=== PATIENT | male | born 1955 | race Two or more races ===

== ENCOUNTER 2020-12-26 00:08 | Inpatient (IN) | payer MEDICARE, MEDICAID ==
[~2020-12-26] VITALS: Ht 175.3 cm; Wt 110.5 kg
[2020-12-26 02:03] LABS: Basophils # (auto) 0 10 ^3/uL (0-0.2); Basophils % (auto) 0.7 % (0.0-2.0); Eosinophils # (auto) 0.1 10 ^3/uL (0-0.8); Eosinophils % (auto) 1.7 % (0.0-7.0); Hematocrit 41.8 % (41.0-53.0); Hemoglobin 13.5 g/dL (13.5-17.5); Lymphocytes # (auto) 0.9 10 ^3/uL (0.4-5.4); Mean Corpuscular Hemoglobin 27.3 pg (28.0-32.0); Mean Corpuscular Hgb Conc. 32.4 g/dL (32.0-36.0); Mean Corpuscular Volume 84.1 fL (80.0-100.0); Monocytes # (auto) 0.8 10 ^3/uL (0-1.3); Monocytes % (auto) 16.3 % (0.0-12.0); Neutrophils % (auto) 62.3 % (37.0-80.0); Nucleated Red Blood Cells % 0.5 %; Red Blood Cells 4.97 10^6/uL (4.5-5.90); Red Cell Distribution Width 18.2 % (11.8-14.3); White Blood Cell 4.8 10^3/uL (4.4-10.8)
[2020-12-26 02:24] LABS: Albumin 2.9 g/dL (3.4-5.0); Anion Gap 8 (5-15); BUN/Creatinine Ratio 17.2; Blood Urea Nitrogen 28 mg/dL (7-18); Calcium 8.8 mg/dL (8.5-10.1); Carbon Dioxide 26 mmol/L (21-32); Chloride 105 mmol/L (98-107); GFR African American 55 mL/min; GFR Non-African American 45 mL/min; Glucose 118 mg/dL (74-106); Potassium 4.2 mmol/L (3.5-5.1); Sodium 139 mmol/L (136-145)
[2020-12-26 02:29] LABS: Alanine Aminotransferase 18 U/L (16-61); Alkaline Phosphatase 123 U/L (45-117); Aspartate Aminotransferase 25 U/L (15-37); Bilirubin, Total 1.3 mg/dL (0.2-1.0); Total Protein 7.6 g/dL (6.4-8.2)
[2020-12-26] MEDS ORDERED: FUROSEMIDE 40 MG/4 ML VIAL IV ONE (03:30)
[2020-12-26] MEDS: InsuLIN REG 1unit/0.01ml Soln (100units/ml) SC SCH ×4 (07:00→22:40)
[2020-12-26] MEDS ORDERED: MORPHINE SULFATE INJECTION 2 MG/ML SYRG IV PRN (07:00)
[2020-12-26] MEDS ORDERED: DEXTROSE (50%) 50ML SYRG IV PRN (07:00)
[2020-12-26] MEDS ORDERED: NITROGLYCERIN 0.4 MG SL TAB SL PRN (07:00)
[2020-12-26] MEDS ORDERED: ACETAMINOPHEN 325 MG TAB PO PRN (07:00)
[2020-12-26] MEDS: HYDROcodone-ACET 5/325MG TAB PO PRN ×2 (07:48→15:59)
[2020-12-26] MEDS: ACCU-CHEK COMFORT CURVE STRIP VI SCH ×4 (08:05→22:25)
[2020-12-26 08:13] LABS: Urine WBC None Seen /hpf (0 - 3)
[2020-12-26 08:22] LABS: Urine Bacteria NONE SEEN /hpf (None Seen); Urine Blood Negative /uL (Negative); Urine Hyaline Cast MANY /lpf (0 - 2); Urine Mucus FEW (None Seen); Urine Specific Gravity 1.011 (1.001-1.035)
[2020-12-26] MEDS ORDERED: ZINC SULFATE 220mg CAP or TAB PO SCH (10:00)
[2020-12-26] MEDS: FAMOTIDINE (10MG/ML) 2ML VL IV SCH (10:17)
[2020-12-26] MEDS: CARVEDILOL 12.5 MG TAB PO SCH ×2 (10:17→22:40)
[2020-12-26] MEDS: ASCORBIC ACID 500 MG TAB PO SCH ×2 (10:18→22:40)
[2020-12-26] MEDS: HEPARIN SODIUM (PORCINE) 5000 UNITS/ML 1ML VIAL SC SCH ×3 (10:18→22:40)
[2020-12-26] MEDS: MULTIPLE VITAMIN TAB PO SCH (10:18)
[2020-12-26] MEDS ORDERED: cefTRIAXone 1GM/50ML D5W 50 ML IV ONE (11:30)
[2020-12-26] MEDS ORDERED: DOXYCYCLINE 100 MG TAB/CAP PO ONE (11:30)
[2020-12-26] MEDS: SODIUM CHLOR 0.9% PF (SALINE LOCK) 10ML VIAL/SYR IV SCH ×2 (14:05→22:40)
[2020-12-26] MEDS: ONDANSETRON HCL 4 MG/2 ML VIAL IV PRN (15:59)
[2020-12-26] MEDS ORDERED: FUROSEMIDE 40 MG/4 ML VIAL IV SCH (18:00)
[2020-12-26] MEDS: FUROSEMIDE 40 MG/4 ML VIAL IV SCH (18:16)
[2020-12-26 20:08] LABS: INR 1.4 (0.9-1.15); Partial Thromboplastin Time 30.9 sec (23.6-33.0)
[2020-12-26] MEDS: DOXYCYCLINE 100 MG TAB/CAP PO SCH (22:40)
[2020-12-27] MEDS: ALBUMIN 25% 100 ML IV SCH ×2 (00:30→16:49)
[2020-12-27] MEDS: ONDANSETRON HCL 4 MG/2 ML VIAL IV PRN (01:47)
[2020-12-27 04:02] LABS: Basophils # (auto) 0 10 ^3/uL (0-0.2); Basophils % (auto) 0.9 % (0.0-2.0); Eosinophils # (auto) 0.1 10 ^3/uL (0-0.8); Lymphocytes # (auto) 0.8 10 ^3/uL (0.4-5.4); Monocytes # (auto) 0.8 10 ^3/uL (0-1.3); Neutrophils # (auto) 2.9 10 ^3/uL (1.6-8.6); Neutrophils % (auto) 63.4 % (37.0-80.0); White Blood Cell 4.6 10^3/uL (4.4-10.8)
[2020-12-27 04:04] LABS: Eosinophils % (auto) 1.3 % (0.0-7.0); Hematocrit 41.4 % (41.0-53.0); Hemoglobin 13.3 g/dL (13.5-17.5); Lymphocytes % (auto) 16.6 % (10.0-50.0); Mean Corpuscular Hemoglobin 27.5 pg (28.0-32.0); Mean Corpuscular Hgb Conc. 32.1 g/dL (32.0-36.0); Mean Corpuscular Volume 85.4 fL (80.0-100.0); Monocytes % (auto) 17.8 % (0.0-12.0); Nucleated Red Blood Cells % 0.3 %; Red Blood Cells 4.85 10^6/uL (4.5-5.90); Red Cell Distribution Width 18.4 % (11.8-14.3)
[2020-12-27 04:24] LABS: Albumin 2.7 g/dL (3.4-5.0); BUN/Creatinine Ratio 17.5; Bilirubin, Total 1.3 mg/dL (0.2-1.0); Total Protein 7.2 g/dL (6.4-8.2)
[2020-12-27] MEDS: FUROSEMIDE 40 MG/4 ML VIAL IV SCH (05:36)
[2020-12-27] MEDS: SODIUM CHLOR 0.9% PF (SALINE LOCK) 10ML VIAL/SYR IV SCH ×3 (05:36→22:00)
[2020-12-27] MEDS: InsuLIN REG 1unit/0.01ml Soln (100units/ml) SC SCH ×4 (06:18→22:30)
[2020-12-27] MEDS: ACCU-CHEK COMFORT CURVE STRIP VI SCH ×4 (06:18→22:30)
[2020-12-27] MEDS: cefTRIAXone 1GM/50ML D5W 50 ML IV SCH (09:00)
[2020-12-27] MEDS: FAMOTIDINE (10MG/ML) 2ML VL IV SCH (09:38)
[2020-12-27] MEDS: CARVEDILOL 12.5 MG TAB PO SCH ×2 (09:40→22:30)
[2020-12-27] MEDS: DOXYCYCLINE 100 MG TAB/CAP PO SCH ×2 (09:40→23:24)
[2020-12-27] MEDS: MULTIPLE VITAMIN TAB PO SCH (09:40)
[2020-12-27] MEDS: ASCORBIC ACID 500 MG TAB PO SCH (09:41)
[2020-12-27] MEDS: HEPARIN SODIUM (PORCINE) 5000 UNITS/ML 1ML VIAL SC SCH ×2 (09:41→22:30)
[2020-12-27 16:56] LABS: Creatinine, Urine 208 mg/dL (30.0-125.0); Sodium Urine 14 mmol/L (40-220)
[2020-12-27] MEDS: BUMETANIDE 2.5mg/10ml (0.25 mg/ml) INJ IV SCH ×2 (18:00→18:47)
[2020-12-27] MEDS: SUCRALFATE 1 GM/10 ML ORAL SUSP PO SCH ×2 (18:20→23:27)
[2020-12-27 20:00] VITALS: BP 93/53
[2020-12-27] MEDS: HYDROcodone-ACET 5/325MG TAB PO PRN (22:30)
[2020-12-27] MEDS: PANTOPRAZOLE 40 MG TAB PO SCH (22:30)
[2020-12-28] MEDS: SUCRALFATE 1 GM/10 ML ORAL SUSP PO SCH ×4 (06:18→22:00)
[2020-12-28] MEDS: SODIUM CHLOR 0.9% PF (SALINE LOCK) 10ML VIAL/SYR IV SCH ×3 (06:18→22:00)
[2020-12-28] MEDS: BUMETANIDE 2.5mg/10ml (0.25 mg/ml) INJ IV SCH ×2 (06:18→18:32)
[2020-12-28] MEDS: InsuLIN REG 1unit/0.01ml Soln (100units/ml) SC SCH ×4 (06:21→22:00)
[2020-12-28] MEDS: ACCU-CHEK COMFORT CURVE STRIP VI SCH ×4 (07:00→22:00)
[2020-12-28] MEDS: ALBUMIN 25% 100 ML IV SCH (08:30)
[2020-12-28 09:00] VITALS: BP 99/67
[2020-12-28] MEDS: HEPARIN SODIUM (PORCINE) 5000 UNITS/ML 1ML VIAL SC SCH ×2 (10:00→22:00)
[2020-12-28] MEDS: cefTRIAXone 1GM/50ML D5W 50 ML IV SCH (10:08)
[2020-12-28] MEDS: DOXYCYCLINE 100 MG TAB/CAP PO SCH ×2 (10:08→22:00)
[2020-12-28] MEDS: MULTIPLE VITAMIN TAB PO SCH (10:09)
[2020-12-28] MEDS: PANTOPRAZOLE 40 MG TAB PO SCH ×2 (10:09→22:00)
[2020-12-28] MEDS: CARVEDILOL 12.5 MG TAB PO SCH ×2 (10:10→22:00)
[2020-12-28] MEDS: ENOXAPARIN SOD 40 MG/0.4 ML SYRINGE SC SCH (10:11)
[2020-12-28] MEDS: HYDROcodone-ACET 5/325MG TAB PO PRN ×2 (11:35→18:34)
[2020-12-28 12:49] VITALS: BP 113/60
[2020-12-28 17:03] VITALS: BP 100/60
[2020-12-28 20:00] VITALS: BP 79/37
[2020-12-28] MEDS ORDERED: MORPHINE SULFATE INJECTION 2 MG/ML SYRG IV PRN (20:45)
[2020-12-28 23:39] VITALS: BP 79/37
[2020-12-29 05:23] VITALS: BP 106/74
[2020-12-29] MEDS: SODIUM CHLOR 0.9% PF (SALINE LOCK) 10ML VIAL/SYR IV SCH ×3 (06:00→21:38)
[2020-12-29] MEDS: SUCRALFATE 1 GM/10 ML ORAL SUSP PO SCH ×4 (06:18→21:44)
[2020-12-29] MEDS: BUMETANIDE 2.5mg/10ml (0.25 mg/ml) INJ IV SCH ×2 (06:19→17:22)
[2020-12-29] MEDS: ACCU-CHEK COMFORT CURVE STRIP VI SCH ×4 (07:00→21:36)
[2020-12-29] MEDS: InsuLIN REG 1unit/0.01ml Soln (100units/ml) SC SCH ×4 (07:00→21:44)
[2020-12-29 09:00] VITALS: BP 125/68
[2020-12-29] MEDS: cefTRIAXone 1GM/50ML D5W 50 ML IV SCH (09:00)
[2020-12-29] MEDS: CARVEDILOL 12.5 MG TAB PO SCH ×2 (09:53→21:45)
[2020-12-29] MEDS: ENOXAPARIN SOD 40 MG/0.4 ML SYRINGE SC SCH (09:53)
[2020-12-29] MEDS: HEPARIN SODIUM (PORCINE) 5000 UNITS/ML 1ML VIAL SC SCH (09:53)
[2020-12-29] MEDS: PANTOPRAZOLE 40 MG TAB PO SCH ×2 (09:53→21:44)
[2020-12-29] MEDS: MULTIPLE VITAMIN TAB PO SCH (09:53)
[2020-12-29] MEDS: DOXYCYCLINE 100 MG TAB/CAP PO SCH (09:53)
[2020-12-29] MEDS ORDERED: ACETAMINOPHEN 500 MG TAB PO PRN (11:15)
[2020-12-29 13:00] VITALS: BP 85/53
[2020-12-29] MEDS: DOBUTamine 1000MCG/ML 250 ML IV SCH (14:26)
[2020-12-29] MEDS: HYDROcodone-ACET 5/325MG TAB PO PRN ×2 (14:26→19:58)
[2020-12-29 17:00] VITALS: BP 85/49
[2020-12-29 22:00] VITALS: BP 87/57
[2020-12-30 05:00] VITALS: BP 114/54
[2020-12-30] MEDS: HYDROcodone-ACET 5/325MG TAB PO PRN ×3 (05:14→21:25)
[2020-12-30 05:41] LABS: Basophils # (auto) 0 10 ^3/uL (0-0.2); Basophils % (auto) 0.9 % (0.0-2.0); Eosinophils # (auto) 0.1 10 ^3/uL (0-0.8); Eosinophils % (auto) 1.5 % (0.0-7.0); Hematocrit 39.6 % (41.0-53.0); Hemoglobin 12.8 g/dL (13.5-17.5); Lymphocytes # (auto) 0.6 10 ^3/uL (0.4-5.4); Lymphocytes % (auto) 17.7 % (10.0-50.0); Mean Corpuscular Hemoglobin 27.4 pg (28.0-32.0); Mean Corpuscular Hgb Conc. 32.4 g/dL (32.0-36.0); Mean Corpuscular Volume 84.5 fL (80.0-100.0); Monocytes # (auto) 0.6 10 ^3/uL (0-1.3); Monocytes % (auto) 17.5 % (0.0-12.0); Neutrophils # (auto) 2.3 10 ^3/uL (1.6-8.6); Neutrophils % (auto) 62.4 % (37.0-80.0); Nucleated Red Blood Cells % 0.2 %; Red Blood Cells 4.69 10^6/uL (4.5-5.90); Red Cell Distribution Width 18.2 % (11.8-14.3); White Blood Cell 3.6 10^3/uL (4.4-10.8)
[2020-12-30 05:59] LABS: Calcium 8.6 mg/dL (8.5-10.1); Potassium 4.7 mmol/L (3.5-5.1)
[2020-12-30 06:02] LABS: BUN/Creatinine Ratio 12.4
[2020-12-30] MEDS: SUCRALFATE 1 GM/10 ML ORAL SUSP PO SCH ×4 (06:33→21:49)
[2020-12-30] MEDS: BUMETANIDE 2.5mg/10ml (0.25 mg/ml) INJ IV SCH (06:33)
[2020-12-30] MEDS: SODIUM CHLOR 0.9% PF (SALINE LOCK) 10ML VIAL/SYR IV SCH ×3 (06:36→21:48)
[2020-12-30] MEDS: DOBUTamine 1000MCG/ML 250 ML IV SCH (06:43)
[2020-12-30] MEDS: InsuLIN REG 1unit/0.01ml Soln (100units/ml) SC SCH ×4 (06:43→21:50)
[2020-12-30] MEDS: ACCU-CHEK COMFORT CURVE STRIP VI SCH ×4 (06:44→21:50)
[2020-12-30 09:00] VITALS: BP 108/69
[2020-12-30] MEDS ORDERED: metOLazone 5 MG TAB PO ONE (09:15)
[2020-12-30] MEDS: MULTIPLE VITAMIN TAB PO SCH (09:45)
[2020-12-30] MEDS: cefTRIAXone 1GM/50ML D5W 50 ML IV SCH (09:45)
[2020-12-30] MEDS: PANTOPRAZOLE 40 MG TAB PO SCH ×2 (09:45→21:49)
[2020-12-30] MEDS: CARVEDILOL 12.5 MG TAB PO SCH (09:46)
[2020-12-30] MEDS: ENOXAPARIN SOD 30 MG/0.3 ML SYRINGE SC SCH (12:00)
[2020-12-30] MEDS ORDERED: ALBUMIN 25% 100 ML IV ONE (12:45)
[2020-12-30 13:00] VITALS: BP 99/63
[2020-12-30 17:00] VITALS: BP 87/51
[2020-12-30 22:00] VITALS: BP 93/59
[2020-12-30] MEDS ORDERED: CARVEDILOL 12.5 MG TAB PO SCH (22:00)
[2020-12-31] MEDS: DOBUTamine 1000MCG/ML 250 ML IV SCH ×3 (00:58→21:55)
[2020-12-31 05:00] VITALS: BP 111/67
[2020-12-31] MEDS: ONDANSETRON HCL 4 MG/2 ML VIAL IV PRN (05:24)
[2020-12-31] MEDS: ACCU-CHEK COMFORT CURVE STRIP VI SCH ×4 (06:22→21:18)
[2020-12-31] MEDS: SUCRALFATE 1 GM/10 ML ORAL SUSP PO SCH ×4 (06:22→21:17)
[2020-12-31] MEDS: SODIUM CHLOR 0.9% PF (SALINE LOCK) 10ML VIAL/SYR IV SCH ×3 (06:22→21:17)
[2020-12-31] MEDS: InsuLIN REG 1unit/0.01ml Soln (100units/ml) SC SCH ×4 (06:23→21:18)
[2020-12-31] MEDS: HYDROcodone-ACET 5/325MG TAB PO PRN ×2 (06:29→21:18)
[2020-12-31 06:39] LABS: BUN/Creatinine Ratio 13.2; Calcium 8.6 mg/dL (8.5-10.1); Potassium 4.5 mmol/L (3.5-5.1)
[2020-12-31 09:00] VITALS: BP 117/68
[2020-12-31] MEDS: PANTOPRAZOLE 40 MG TAB PO SCH ×2 (10:00→21:17)
[2020-12-31] MEDS: ENOXAPARIN SOD 30 MG/0.3 ML SYRINGE SC SCH (10:00)
[2020-12-31] MEDS: MULTIPLE VITAMIN TAB PO SCH (11:36)
[2020-12-31] MEDS ORDERED: ALBUMIN 25% 100 ML IV ONE (12:45)
[2020-12-31 13:00] VITALS: BP 96/57
[2020-12-31 17:00] VITALS: BP 106/61
[2020-12-31] MEDS: DOCUSATE SOD 100 MG CAP PO PRN (21:18)
[2020-12-31 22:00] VITALS: BP 97/62
[2021-01-01 05:00] VITALS: BP 106/56
[2021-01-01] MEDS: DOBUTamine 1000MCG/ML 250 ML IV SCH ×4 (05:03→21:22)
[2021-01-01 06:13] LABS: BUN/Creatinine Ratio 16.1; Calcium 8.6 mg/dL (8.5-10.1); Potassium 4.4 mmol/L (3.5-5.1)
[2021-01-01] MEDS: SUCRALFATE 1 GM/10 ML ORAL SUSP PO SCH ×4 (06:17→21:19)
[2021-01-01] MEDS: SODIUM CHLOR 0.9% PF (SALINE LOCK) 10ML VIAL/SYR IV SCH ×3 (06:17→21:19)
[2021-01-01] MEDS: InsuLIN REG 1unit/0.01ml Soln (100units/ml) SC SCH ×4 (06:18→21:19)
[2021-01-01] MEDS: ACCU-CHEK COMFORT CURVE STRIP VI SCH ×4 (06:19→21:20)
[2021-01-01 09:00] VITALS: BP 102/55
[2021-01-01] MEDS: MULTIPLE VITAMIN TAB PO SCH (11:05)
[2021-01-01] MEDS: PANTOPRAZOLE 40 MG TAB PO SCH ×2 (11:05→21:19)
[2021-01-01] MEDS: ENOXAPARIN SOD 30 MG/0.3 ML SYRINGE SC SCH (11:08)
[2021-01-01] MEDS ORDERED: DOBUTamine 1000MCG/ML 250 ML IV SCH (12:30)
[2021-01-01 13:00] VITALS: BP 117/69
[2021-01-01] MEDS: DOCUSATE SOD 100 MG CAP PO PRN (15:06)
[2021-01-01] MEDS: HYDROcodone-ACET 5/325MG TAB PO PRN ×2 (15:06→20:12)
[2021-01-01 17:55] VITALS: BP 115/57
[2021-01-01 22:00] VITALS: BP 104/62
[2021-01-02] MEDS: HYDROcodone-ACET 5/325MG TAB PO PRN (01:50)
[2021-01-02 05:00] VITALS: BP 114/71
[2021-01-02 06:38] LABS: Calcium 8.4 mg/dL (8.5-10.1); Potassium 4.8 mmol/L (3.5-5.1)
[2021-01-02] MEDS: SODIUM CHLOR 0.9% PF (SALINE LOCK) 10ML VIAL/SYR IV SCH (06:40)
[2021-01-02 06:41] LABS: BUN/Creatinine Ratio 18.8
[2021-01-02] MEDS: ACCU-CHEK COMFORT CURVE STRIP VI SCH ×2 (06:51→11:48)
[2021-01-02] MEDS: InsuLIN REG 1unit/0.01ml Soln (100units/ml) SC SCH ×2 (06:51→11:30)
[2021-01-02] MEDS: SUCRALFATE 1 GM/10 ML ORAL SUSP PO SCH ×2 (06:51→11:48)
[2021-01-02] MEDS: MULTIPLE VITAMIN TAB PO SCH (08:29)
[2021-01-02] MEDS: PANTOPRAZOLE 40 MG TAB PO SCH (08:29)
[2021-01-02] MEDS: ENOXAPARIN SOD 30 MG/0.3 ML SYRINGE SC SCH (08:31)
[2021-01-02 09:00] VITALS: BP 138/71
[2021-01-02 12:38] VITALS: BP 118/65
[2021-01-02 13:00] VITALS: BP 129/62
== END 2021-01-02 13:35 | disposition home or self-care (01) ==
LOC: ER 00:08 → EDBD 00:08 → TELE 06:48 → TELE-CENTR 12-27 17:32
PROVIDERS: ADMIT Nurse Practitioner Family; ATTEND Internal Medicine
PROC: 0W993ZZ Drainage of Right Pleural Cavity, Percutaneous Approach (ICD-10-PCS; 2020-12-27)
PROC: 0W9G3ZZ Drainage of Peritoneal Cavity, Percutaneous Approach (ICD-10-PCS; principal; 2020-12-29)
DX: K74.60 Unspecified cirrhosis of liver (principal); J96.21 Acute and chronic respiratory failure with hypoxia; N17.0 Acute kidney failure with tubular necrosis; I50.23 Acute on chronic systolic (congestive) heart failure; J91.8 Pleural effusion in other conditions classified elsewhere; J18.9 Pneumonia, unspecified organism; I13.0 Hypertensive heart and chronic kidney disease with heart failure and stage 1 through stage 4 chronic kidney disease, or unspecified chronic kidney disease; E88.09 Other disorders of plasma-protein metabolism, not elsewhere classified; R18.8 Other ascites; E11.22 Type 2 diabetes mellitus with diabetic chronic kidney disease; E11.65 Type 2 diabetes mellitus with hyperglycemia; J98.11 Atelectasis; E66.9 Obesity, unspecified; Z20.822 Contact with and (suspected) exposure to COVID-19; N18.30 Chronic kidney disease, stage 3 unspecified; E87.5 Hyperkalemia; N43.3 Hydrocele, unspecified; K57.30 Diverticulosis of large intestine without perforation or abscess without bleeding; I25.5 Ischemic cardiomyopathy; E56.9 Vitamin deficiency, unspecified; E78.5 Hyperlipidemia, unspecified; I48.91 Unspecified atrial fibrillation; Z79.4 Long term (current) use of insulin; Z79.899 Other long term (current) drug therapy; Z91.19 Patient's noncompliance with other medical treatment and regimen; Z95.810 Presence of automatic (implantable) cardiac defibrillator; Z68.36 Body mass index [BMI] 36.0-36.9, adult
CPT/HCPCS: 36415; 36600; 71045; 71250; 74176; 76705; 76775; 76942; 80048; 80053; 81001; 82306; 82570; 82805; 82962; 83036; 83880; 83970; 84100; 84156; 84300; 84484; 85025; 85610; 85730; 87070; 87205; 87426; 89051; 93005; 93306; 93970; 96365; 96375; 96376; 97163; G0378; J0696; J1815; J2405; J3490; P9047

== ENCOUNTER 2021-02-01 21:19 | Inpatient (IN) | payer MEDICARE, MEDICAID ==
[~2021-02-01] VITALS: Ht 30.5 cm; Wt 113.9 kg
[2021-02-01] MEDS ORDERED: FUROSEMIDE 40 MG/4 ML VIAL IV ONE (21:30)
[2021-02-01 22:30] LABS: Basophils # (auto) 0 10 ^3/uL (0-0.2); Eosinophils # (auto) 0.1 10 ^3/uL (0-0.8); Eosinophils % (auto) 1.4 % (0.0-7.0); Hematocrit 40.6 % (41.0-53.0); Hemoglobin 12.9 g/dL (13.5-17.5); Lymphocytes # (auto) 0.7 10 ^3/uL (0.4-5.4); Lymphocytes % (auto) 18.9 % (10.0-50.0); Mean Corpuscular Hemoglobin 27.6 pg (28.0-32.0); Mean Corpuscular Hgb Conc. 31.7 g/dL (32.0-36.0); Monocytes # (auto) 0.5 10 ^3/uL (0-1.3); Monocytes % (auto) 14.6 % (0.0-12.0); Neutrophils # (auto) 2.4 10 ^3/uL (1.6-8.6); Neutrophils % (auto) 64.1 % (37.0-80.0); Nucleated Red Blood Cells % 0.1 %; Red Blood Cells 4.66 10^6/uL (4.5-5.90); Red Cell Distribution Width 17.5 % (11.8-14.3); White Blood Cell 3.7 10^3/uL (4.4-10.8)
[2021-02-01 22:48] LABS: Albumin 2.7 g/dL (3.4-5.0); Anion Gap 6 (5-15); Blood Urea Nitrogen 37 mg/dL (7-18); Calcium 8.5 mg/dL (8.5-10.1); Carbon Dioxide 27 mmol/L (21-32); Chloride 106 mmol/L (98-107); Glucose 136 mg/dL (74-106); Magnesium 2.5 mg/dL (1.6-2.6); Potassium 4.3 mmol/L (3.5-5.1); Sodium 139 mmol/L (136-145)
[2021-02-01 22:53] LABS: Alanine Aminotransferase 15 U/L (16-61); Alkaline Phosphatase 133 U/L (45-117); Aspartate Aminotransferase 23 U/L (15-37); GFR African American 56 mL/min; GFR Non-African American 46 mL/min; Total Protein 7.2 g/dL (6.4-8.2)
[2021-02-02 02:26] LABS: Urine Bacteria NONE SEEN /hpf (None Seen); Urine Blood Negative /uL (Negative); Urine Hyaline Cast FEW /lpf (0 - 2); Urine WBC 2 /hpf (0 - 3)
[2021-02-02] MEDS ORDERED: NITROGLYCERIN 0.4 MG SL TAB SL PRN (03:15)
[2021-02-02] MEDS ORDERED: TEMAZEPAM 15 MG CAP PO PRN (03:15)
[2021-02-02] MEDS ORDERED: ACETAMINOPHEN 325 MG TAB PO PRN (03:15)
[2021-02-02] MEDS ORDERED: ONDANSETRON HCL 4 MG/2 ML VIAL IV PRN (03:15)
[2021-02-02] MEDS ORDERED: MORPHINE SULFATE INJECTION 2 MG/ML SYRG IV PRN (03:15)
[2021-02-02] MEDS: HYDROcodone-ACET 5/325MG TAB PO PRN ×4 (03:46→23:48)
[2021-02-02] MEDS ORDERED: FUROSEMIDE 20 MG/2 ML VIAL IV SCH (06:00)
[2021-02-02 08:00] VITALS: BP 127/87
[2021-02-02 08:36] LABS: INR 1.27 (0.9-1.15); Partial Thromboplastin Time 30.2 sec (23.6-33.0)
[2021-02-02 09:00] VITALS: BP 127/87
[2021-02-02] MEDS: PANTOPRAZOLE 40 MG TAB PO SCH (09:59)
[2021-02-02] MEDS: ASPirin 81 mg TAB PO SCH (10:00)
[2021-02-02] MEDS: SPIRONOLACTONE 25 MG TAB PO SCH (10:00)
[2021-02-02] MEDS ORDERED: DEXTROSE (50%) 50ML SYRG IV PRN (12:00)
[2021-02-02 13:00] VITALS: BP 148/94
[2021-02-02] MEDS: SACUBITRIL-VALSARTAN 24mg/26mg TAB PO SCH ×2 (13:22→21:50)
[2021-02-02] MEDS ORDERED: FURO80TA3 PO (15:44)
[2021-02-02] MEDS ORDERED: SACU1TAB PO (15:44)
[2021-02-02] MEDS ORDERED: PANT40T PO (15:44)
[2021-02-02] MEDS ORDERED: WARF5TAB71 PO (15:44)
[2021-02-02] MEDS ORDERED: SPIR25TA8 PO (15:44)
[2021-02-02] MEDS ORDERED: VERI2.5T PO (15:44)
[2021-02-02] MEDS ORDERED: CHOL20002 PO (15:44)
[2021-02-02] MEDS ORDERED: LACT10SO3 PO (15:44)
[2021-02-02] MEDS ORDERED: GABA300C10 PO (15:44)
[2021-02-02] MEDS ORDERED: INFLUENZA QUAD 2021-2022 0.5 ML SYRG IM ONE (15:45)
[2021-02-02 17:00] VITALS: BP 112/72
[2021-02-02] MEDS ORDERED: WARFARIN SODIUM 5 MG TAB PO ONE (17:00)
[2021-02-02] MEDS: ACCU-CHEK COMFORT CURVE STRIP VI SCH ×2 (17:00→21:40)
[2021-02-02] MEDS: FUROSEMIDE 40 MG/4 ML VIAL IV SCH (17:54)
[2021-02-02] MEDS: InsuLIN REG 1unit/0.01ml Soln (100units/ml) SC SCH ×2 (18:00→21:38)
[2021-02-02] MEDS: CARVEDILOL 3.125 MG TAB PO SCH (21:51)
[2021-02-02 22:25] VITALS: BP 115/69
[2021-02-03 05:25] VITALS: BP 118/78
[2021-02-03] MEDS: FUROSEMIDE 40 MG/4 ML VIAL IV SCH (06:11)
[2021-02-03] MEDS: ACCU-CHEK COMFORT CURVE STRIP VI SCH ×2 (06:11→11:49)
[2021-02-03] MEDS: InsuLIN REG 1unit/0.01ml Soln (100units/ml) SC SCH ×2 (06:11→11:49)
[2021-02-03 06:15] LABS: Basophils # (auto) 0 10 ^3/uL (0-0.2); Basophils % (auto) 0.7 % (0.0-2.0); Eosinophils # (auto) 0.1 10 ^3/uL (0-0.8); Eosinophils % (auto) 2.1 % (0.0-7.0); Hematocrit 40.2 % (41.0-53.0); Lymphocytes # (auto) 0.7 10 ^3/uL (0.4-5.4); Lymphocytes % (auto) 20.8 % (10.0-50.0); Mean Corpuscular Hemoglobin 27.9 pg (28.0-32.0); Mean Corpuscular Hgb Conc. 32.4 g/dL (32.0-36.0); Mean Corpuscular Volume 86.1 fL (80.0-100.0); Monocytes # (auto) 0.5 10 ^3/uL (0-1.3); Monocytes % (auto) 15.1 % (0.0-12.0); Neutrophils # (auto) 2.1 10 ^3/uL (1.6-8.6); Neutrophils % (auto) 61.3 % (37.0-80.0); Nucleated Red Blood Cells % 0.3 %; Red Blood Cells 4.67 10^6/uL (4.5-5.90); Red Cell Distribution Width 17.3 % (11.8-14.3); White Blood Cell 3.5 10^3/uL (4.4-10.8)
[2021-02-03 06:20] LABS: INR 1.32 (0.9-1.15)
[2021-02-03 06:33] LABS: Potassium 4.7 mmol/L (3.5-5.1)
[2021-02-03 06:47] LABS: Albumin 2.4 g/dL (3.4-5.0); Bilirubin, Total 1.3 mg/dL (0.2-1.0); Calcium 8.7 mg/dL (8.5-10.1); Total Protein 6.5 g/dL (6.4-8.2)
[2021-02-03 09:00] VITALS: BP 144/92
[2021-02-03] MEDS: SPIRONOLACTONE 25 MG TAB PO SCH (10:38)
[2021-02-03] MEDS: ASPirin 81 mg TAB PO SCH (10:38)
[2021-02-03] MEDS: SACUBITRIL-VALSARTAN 24mg/26mg TAB PO SCH (10:39)
[2021-02-03] MEDS: PANTOPRAZOLE 40 MG TAB PO SCH (10:39)
[2021-02-03] MEDS: CARVEDILOL 3.125 MG TAB PO SCH (10:39)
[2021-02-03] MEDS: HYDROcodone-ACET 5/325MG TAB PO PRN (10:40)
[2021-02-03 13:00] VITALS: BP 109/64
[2021-02-03 13:29] VITALS: BP 144/92
[2021-02-03] MEDS ORDERED: WARFARIN SODIUM 5 MG TAB PO ONE (17:00)
== END 2021-02-03 14:15 | disposition home or self-care (01) | DRG 194 ==
LOC: EDBD 21:19 → ER 21:22 → TELE 02-02 03:13 → TELE-CENTR 02-02 05:22
PROVIDERS: ADMIT Nurse Practitioner; ATTEND Internal Medicine
PROC: 0W9G3ZZ Drainage of Peritoneal Cavity, Percutaneous Approach (ICD-10-PCS; principal; 2021-02-02)
PROC: 3E0234Z Introduction of Serum, Toxoid and Vaccine into Muscle, Percutaneous Approach (ICD-10-PCS; 2021-02-03)
DX: I13.0 Hypertensive heart and chronic kidney disease with heart failure and stage 1 through stage 4 chronic kidney disease, or unspecified chronic kidney disease (principal); J96.20 Acute and chronic respiratory failure, unspecified whether with hypoxia or hypercapnia; R18.8 Other ascites; E44.0 Moderate protein-calorie malnutrition; Z68.45 Body mass index [BMI] 70 or greater, adult; I50.43 Acute on chronic combined systolic (congestive) and diastolic (congestive) heart failure; E11.22 Type 2 diabetes mellitus with diabetic chronic kidney disease; I50.82 Biventricular heart failure; E66.9 Obesity, unspecified; E55.9 Vitamin D deficiency, unspecified; Z20.822 Contact with and (suspected) exposure to COVID-19; E78.5 Hyperlipidemia, unspecified; I25.10 Atherosclerotic heart disease of native coronary artery without angina pectoris; J44.9 Chronic obstructive pulmonary disease, unspecified; N18.30 Chronic kidney disease, stage 3 unspecified; Z83.3 Family history of diabetes mellitus; Z95.810 Presence of automatic (implantable) cardiac defibrillator; Z23 Encounter for immunization
CPT/HCPCS: 36415; 71045; 74176; 76700; 76942; 78582; 80053; 81001; 82140; 82962; 83735; 83880; 84484; 85025; 85379; 85610; 85730; 87426; 90686; 93970; 96374; 99291; G0378; J1815

== ENCOUNTER 2021-02-19 05:09 | Inpatient (IN) | payer MEDICARE, MEDICAID ==
[~2021-02-19] VITALS: Ht 175.3 cm; Wt 112.0 kg
[~2021-02-19 05:09] MED LIST: CHOL20002 PO; FURO80TA3 PO; GABA300C10 PO; LACT10SO3 PO; PANT40T PO; SACU1TAB PO; SPIR25TA8 PO; VERI2.5T PO; WARF5TAB71 PO
[2021-02-19] MEDS ORDERED: FUROSEMIDE 40 MG/4 ML VIAL IV ONE (07:00)
[2021-02-19 08:41] LABS: Basophils # (auto) 0 10 ^3/uL (0-0.2); Basophils % (auto) 1.1 % (0.0-2.0); Eosinophils # (auto) 0.1 10 ^3/uL (0-0.8); Eosinophils % (auto) 2.8 % (0.0-7.0); Hematocrit 42.8 % (41.0-53.0); Hemoglobin 13.7 g/dL (13.5-17.5); Lymphocytes # (auto) 0.9 10 ^3/uL (0.4-5.4); Lymphocytes % (auto) 20.6 % (10.0-50.0); Mean Corpuscular Hemoglobin 27.5 pg (28.0-32.0); Mean Corpuscular Hgb Conc. 32.1 g/dL (32.0-36.0); Mean Corpuscular Volume 85.7 fL (80.0-100.0); Monocytes # (auto) 0.7 10 ^3/uL (0-1.3); Monocytes % (auto) 16.4 % (0.0-12.0); Neutrophils # (auto) 2.5 10 ^3/uL (1.6-8.6); Neutrophils % (auto) 59.1 % (37.0-80.0); Nucleated Red Blood Cells % 0.3 %; Red Cell Distribution Width 16.8 % (11.8-14.3); White Blood Cell 4.2 10^3/uL (4.4-10.8)
[2021-02-19 08:52] LABS: INR 1.38 (0.9-1.15); Partial Thromboplastin Time 30.8 sec (23.6-33.0)
[2021-02-19 08:56] LABS: Albumin 2.9 g/dL (3.4-5.0); Calcium 8.6 mg/dL (8.5-10.1)
[2021-02-19 09:02] LABS: Bilirubin, Total 1.3 mg/dL (0.2-1.0); Total Protein 8.1 g/dL (6.4-8.2)
[2021-02-19] MEDS ORDERED: MORPHINE SULFATE INJECTION 2 MG/ML SYRG IV PRN (14:00)
[2021-02-19] MEDS ORDERED: ONDANSETRON HCL 4 MG/2 ML VIAL IV PRN (14:00)
[2021-02-19] MEDS ORDERED: LORazepam 0.5 MG TAB PO PRN (14:00)
[2021-02-19] MEDS ORDERED: hydrALAZINE HCL 20 MG/ML VL IV PRN (14:00)
[2021-02-19] MEDS: SODIUM CHLORIDE 0.9% 1,000 ML IV SCH (14:00)
[2021-02-19] MEDS ORDERED: NITROGLYCERIN 0.4 MG SL TAB SL PRN (14:00)
[2021-02-19] MEDS ORDERED: ACETAMINOPHEN 325 MG TAB PO PRN (14:00)
[2021-02-19 14:26] VITALS: BP 128/90
[2021-02-19] MEDS: MORPHINE SULFATE 4 MG/ML SYR/VIAL IV PRN ×2 (16:17→21:35)
[2021-02-19] MEDS: IPRATROPIUM BROM 0.5 MG/2.5ML INH SOL NEB PRN (19:08)
[2021-02-19] MEDS: BUDESONIDE (INHALATION) 0.5 MG/2 ML NEB NEB SCH (19:08)
[2021-02-19] MEDS: ALBUTEROL SULF 2.5 MG/0.5ML(0.5%) NEB SOLN NEB PRN (19:08)
[2021-02-19 21:04] LABS: Urine Bacteria NONE SEEN /hpf (None Seen); Urine Blood Negative /uL (Negative); Urine Hyaline Cast MANY /lpf (0 - 2); Urine Specific Gravity 1.018 (1.001-1.035); Urine WBC 1 /hpf (0 - 3)
[2021-02-19] MEDS: LACTULOSE 20Gm/30ML SOLN PO SCH (21:23)
[2021-02-19 22:54] VITALS: BP 114/79
[2021-02-19 22:59] VITALS: BP 114/79
[2021-02-20 05:12] VITALS: BP 137/99
[2021-02-20] MEDS: SPIRONOLACTONE 25 MG TAB PO SCH (05:45)
[2021-02-20] MEDS: SODIUM CHLORIDE 0.9% 1,000 ML IV SCH ×2 (05:45→23:20)
[2021-02-20] MEDS: MORPHINE SULFATE 4 MG/ML SYR/VIAL IV PRN ×2 (06:07→10:13)
[2021-02-20] MEDS: BUDESONIDE (INHALATION) 0.5 MG/2 ML NEB NEB SCH ×2 (06:11→18:41)
[2021-02-20 06:26] LABS: Potassium 5.1 mmol/L (3.5-5.1)
[2021-02-20 06:31] LABS: INR 1.3 (0.9-1.15)
[2021-02-20 06:54] LABS: Albumin 3.1 g/dL (3.4-5.0); BUN/Creatinine Ratio 14.6; Bilirubin, Total 1.3 mg/dL (0.2-1.0); Calcium 8.7 mg/dL (8.5-10.1); Total Protein 8.2 g/dL (6.4-8.2)
[2021-02-20 09:00] VITALS: BP 137/99
[2021-02-20] MEDS: VERQUVO 2.5 MG PO SCH (10:00)
[2021-02-20] MEDS: LACTULOSE 20Gm/30ML SOLN PO SCH ×2 (10:00→21:12)
[2021-02-20] MEDS: ENOXAPARIN SOD 40 MG/0.4 ML SYRINGE SC SCH (10:01)
[2021-02-20] MEDS: PANTOPRAZOLE 40 MG TAB PO SCH (10:01)
[2021-02-20 11:33] LABS: Basophils # (auto) 0 10 ^3/uL (0-0.2); Basophils % (auto) 0.6 % (0.0-2.0); Eosinophils # (auto) 0.1 10 ^3/uL (0-0.8); Eosinophils % (auto) 1.5 % (0.0-7.0); Hematocrit 41.2 % (41.0-53.0); Hemoglobin 12.9 g/dL (13.5-17.5); Lymphocytes # (auto) 0.9 10 ^3/uL (0.4-5.4); Mean Corpuscular Hemoglobin 27.6 pg (28.0-32.0); Mean Corpuscular Hgb Conc. 31.3 g/dL (32.0-36.0); Mean Corpuscular Volume 87.9 fL (80.0-100.0); Monocytes # (auto) 0.7 10 ^3/uL (0-1.3); Monocytes % (auto) 15.3 % (0.0-12.0); Neutrophils # (auto) 2.7 10 ^3/uL (1.6-8.6); Neutrophils % (auto) 62.6 % (37.0-80.0); Nucleated Red Blood Cells % 0.2 %; Red Blood Cells 4.68 10^6/uL (4.5-5.90); White Blood Cell 4.3 10^3/uL (4.4-10.8)
[2021-02-20 13:00] VITALS: BP 114/78
[2021-02-20 17:00] VITALS: BP 106/70
[2021-02-20] MEDS: ALBUTEROL SULF 2.5 MG/0.5ML(0.5%) NEB SOLN NEB PRN (18:41)
[2021-02-20] MEDS: IPRATROPIUM BROM 0.5 MG/2.5ML INH SOL NEB PRN (18:41)
[2021-02-21 01:03] VITALS: BP 100/64
[2021-02-21 04:53] VITALS: BP 106/73
[2021-02-21] MEDS: BUDESONIDE (INHALATION) 0.5 MG/2 ML NEB NEB SCH ×2 (05:44→06:24)
[2021-02-21] MEDS: IPRATROPIUM BROM 0.5 MG/2.5ML INH SOL NEB PRN ×2 (05:44→06:24)
[2021-02-21] MEDS: ALBUTEROL SULF 2.5 MG/0.5ML(0.5%) NEB SOLN NEB PRN ×2 (05:44→06:24)
[2021-02-21] MEDS: SPIRONOLACTONE 25 MG TAB PO SCH (07:41)
[2021-02-21] MEDS: LACTULOSE 20Gm/30ML SOLN PO SCH (09:00)
[2021-02-21] MEDS: VERQUVO 2.5 MG PO SCH (09:01)
[2021-02-21] MEDS: PANTOPRAZOLE 40 MG TAB PO SCH (09:01)
[2021-02-21] MEDS: ENOXAPARIN SOD 40 MG/0.4 ML SYRINGE SC SCH (09:01)
[2021-02-21] MEDS: MORPHINE SULFATE 4 MG/ML SYR/VIAL IV PRN (09:02)
[2021-02-21 09:12] VITALS: BP 115/71
[2021-02-21] MEDS ORDERED: TAMSULOSIN HYDROCHLORIDE 0.4 MG CAP PO ONE (09:45)
[2021-02-21 12:50] VITALS: BP 107/55
[2021-02-21 14:37] VITALS: BP 128/90
== END 2021-02-21 15:35 | disposition home or self-care (01) ==
LOC: EDBD 05:09 → ER 05:09 → TELE 13:53 → TELE-CENTR 22:28
PROVIDERS: ADMIT Family Medicine; ATTEND Family Medicine
PROC: 0W9G3ZZ Drainage of Peritoneal Cavity, Percutaneous Approach (ICD-10-PCS; principal; 2021-02-20)
DX: K74.60 Unspecified cirrhosis of liver (principal); I50.43 Acute on chronic combined systolic (congestive) and diastolic (congestive) heart failure; E44.0 Moderate protein-calorie malnutrition; R18.8 Other ascites; E88.81 Metabolic syndrome and other insulin resistance; I11.0 Hypertensive heart disease with heart failure; K80.20 Calculus of gallbladder without cholecystitis without obstruction; I25.10 Atherosclerotic heart disease of native coronary artery without angina pectoris; E11.65 Type 2 diabetes mellitus with hyperglycemia; G89.29 Other chronic pain; Z20.822 Contact with and (suspected) exposure to COVID-19; K76.0 Fatty (change of) liver, not elsewhere classified; J44.9 Chronic obstructive pulmonary disease, unspecified; E78.5 Hyperlipidemia, unspecified; F12.90 Cannabis use, unspecified, uncomplicated; I25.2 Old myocardial infarction; Z83.3 Family history of diabetes mellitus; Z95.0 Presence of cardiac pacemaker; Z95.5 Presence of coronary angioplasty implant and graft
CPT/HCPCS: 36415; 49083; 71250; 74176; 76942; 80053; 81001; 82150; 83036; 83690; 83735; 83880; 84443; 84484; 85025; 85610; 85730; 86704; 86706; 86708; 86803; 87081; 87340; 87426; 93005; 94640; 96361; 96374; 99291; G0378; J2405

== ENCOUNTER 2021-03-03 15:49 | Emergency (ER) | payer MEDICARE, MEDICAID ==
[~2021-03-03] VITALS: Ht 172.7 cm; Wt 113.4 kg
[2021-03-03 15:54] VITALS: BP 108/77
== END 2021-03-03 16:00 | disposition left against medical advice (07) ==
LOC: ER 15:49
DX: R10.84 Generalized abdominal pain (principal); Z53.21 Procedure and treatment not carried out due to patient leaving prior to being seen by health care provider

== ENCOUNTER 2021-03-04 13:48 | Emergency (ER) | payer MEDICARE, MEDICAID ==
[~2021-03-04] VITALS: Ht 175.3 cm; Wt 116.6 kg
[2021-03-04 13:52] VITALS: BP 110/69
[2021-03-04 15:04] LABS: Basophils # (auto) 0.1 10 ^3/uL (0-0.2); Basophils % (auto) 1.4 % (0.0-2.0); Eosinophils # (auto) 0.1 10 ^3/uL (0-0.8); Eosinophils % (auto) 2.7 % (0.0-7.0); Hematocrit 45.6 % (41.0-53.0); Hemoglobin 13.6 g/dL (13.5-17.5); Lymphocytes # (auto) 0.8 10 ^3/uL (0.4-5.4); Lymphocytes % (auto) 21.1 % (10.0-50.0); Mean Corpuscular Hemoglobin 26.8 pg (28.0-32.0); Mean Corpuscular Hgb Conc. 29.7 g/dL (32.0-36.0); Mean Corpuscular Volume 90.1 fL (80.0-100.0); Monocytes # (auto) 0.6 10 ^3/uL (0-1.3); Monocytes % (auto) 15.6 % (0.0-12.0); Neutrophils # (auto) 2.1 10 ^3/uL (1.6-8.6); Neutrophils % (auto) 59.2 % (37.0-80.0); Nucleated Red Blood Cells % 0.4 %; Red Blood Cells 5.07 10^6/uL (4.5-5.90); Red Cell Distribution Width 17.5 % (11.8-14.3); White Blood Cell 3.6 10^3/uL (4.4-10.8)
[2021-03-04 15:09] LABS: Albumin 2.4 g/dL (3.4-5.0); Calcium 8.3 mg/dL (8.5-10.1); Potassium 4.9 mmol/L (3.5-5.1)
[2021-03-04 15:13] LABS: BUN/Creatinine Ratio 17.4; Total Protein 7.4 g/dL (6.4-8.2)
== END 2021-03-04 17:33 | disposition left against medical advice (07) ==
LOC: ER 13:48
DX: R10.84 Generalized abdominal pain (principal); Z53.21 Procedure and treatment not carried out due to patient leaving prior to being seen by health care provider
CPT/HCPCS: 36415; 80053; 84484; 85025; 93005

== ENCOUNTER 2021-03-06 13:10 | Inpatient (IN) | payer MEDICARE, MEDICAID ==
[~2021-03-06] VITALS: Ht 182.9 cm; Wt 113.0 kg
[2021-03-06] MEDS ORDERED: MORPHINE SULFATE 4 MG/ML SYR/VIAL IV ONE (13:45)
[2021-03-06] MEDS ORDERED: ONDANSETRON HCL 4 MG/2 ML VIAL IV ONE (13:45)
[2021-03-06 15:03] LABS: Basophils # (auto) 0.1 10 ^3/uL (0-0.2); Basophils % (auto) 1.4 % (0.0-2.0); Eosinophils # (auto) 0.1 10 ^3/uL (0-0.8); Eosinophils % (auto) 1.5 % (0.0-7.0); Hematocrit 42.7 % (41.0-53.0); Hemoglobin 13.4 g/dL (13.5-17.5); Lymphocytes # (auto) 0.8 10 ^3/uL (0.4-5.4); Lymphocytes % (auto) 16.9 % (10.0-50.0); Mean Corpuscular Hgb Conc. 31.3 g/dL (32.0-36.0); Mean Corpuscular Volume 86.2 fL (80.0-100.0); Monocytes # (auto) 0.7 10 ^3/uL (0-1.3); Monocytes % (auto) 15.8 % (0.0-12.0); Neutrophils # (auto) 3.1 10 ^3/uL (1.6-8.6); Neutrophils % (auto) 64.4 % (37.0-80.0); Nucleated Red Blood Cells % 0.1 %; Red Blood Cells 4.95 10^6/uL (4.5-5.90); Red Cell Distribution Width 16.7 % (11.8-14.3); White Blood Cell 4.7 10^3/uL (4.4-10.8)
[2021-03-06 15:19] LABS: Albumin 2.7 g/dL (3.4-5.0); Calcium 8.5 mg/dL (8.5-10.1); Potassium 4.8 mmol/L (3.5-5.1)
[2021-03-06 15:23] LABS: BUN/Creatinine Ratio 17.6; Bilirubin, Total 1.1 mg/dL (0.2-1.0); Total Protein 7.8 g/dL (6.4-8.2)
[2021-03-06] MEDS: SODIUM CHLOR 0.9% PF (SALINE LOCK) 10ML VIAL/SYR IV SCH (22:00)
[2021-03-06] MEDS ORDERED: DEXTROSE (50%) 50ML SYRG IV PRN (22:00)
[2021-03-06] MEDS: ASCORBIC ACID 500 MG TAB PO SCH (22:00)
[2021-03-06] MEDS ORDERED: ACETAMINOPHEN 325 MG TAB PO PRN (22:00)
[2021-03-06] MEDS ORDERED: ONDANSETRON HCL 4 MG/2 ML VIAL IV PRN (22:00)
[2021-03-06] MEDS: InsuLIN REG 1unit/0.01ml Soln (100units/ml) SC SCH (22:00)
[2021-03-06] MEDS ORDERED: hydrALAZINE HCL 20 MG/ML VL IV PRN (22:00)
[2021-03-06] MEDS: LACTULOSE 20Gm/30ML SOLN PO SCH (22:00)
[2021-03-06 22:27] LABS: INR 1.29 (0.9-1.15); Partial Thromboplastin Time 29.6 sec (23.6-33.0)
[2021-03-07] MEDS ORDERED: NITROGLYCERIN 0.4 MG SL TAB SL PRN
[2021-03-07] MEDS ORDERED: MORPHINE SULFATE INJECTION 2 MG/ML SYRG IV PRN
[2021-03-07 01:20] VITALS: BP 125/85
[2021-03-07] MEDS: ACCU-CHEK COMFORT CURVE STRIP VI SCH ×5 (01:33→22:05)
[2021-03-07] MEDS: MORPHINE SULFATE 4 MG/ML SYR/VIAL IV PRN ×4 (02:18→22:14)
[2021-03-07] MEDS: SODIUM CHLOR 0.9% PF (SALINE LOCK) 10ML VIAL/SYR IV SCH ×3 (06:33→22:05)
[2021-03-07] MEDS: InsuLIN REG 1unit/0.01ml Soln (100units/ml) SC SCH ×4 (06:46→22:00)
[2021-03-07 09:00] VITALS: BP_SYST 116; BP_SYST 150; BP_DIAS 68; BP_DIAS 81
[2021-03-07] MEDS: ZINC SULFATE 220mg CAP or TAB PO SCH (09:25)
[2021-03-07] MEDS: CHOLECALCIFEROL (VITD3) 2,000 UNIT CAP/TAB PO SCH (09:26)
[2021-03-07] MEDS: LACTULOSE 20Gm/30ML SOLN PO SCH ×3 (09:26→22:00)
[2021-03-07] MEDS: MULTIPLE VITAMIN TAB PO SCH (09:26)
[2021-03-07] MEDS: ASCORBIC ACID 500 MG TAB PO SCH ×2 (09:26→22:14)
[2021-03-07] MEDS: SPIRONOLACTONE 25 MG TAB PO SCH (09:26)
[2021-03-07 09:50] LABS: Basophils # (auto) 0 10 ^3/uL (0-0.2); Basophils % (auto) 0.5 % (0.0-2.0); Hematocrit 40.9 % (41.0-53.0); Hemoglobin 12.5 g/dL (13.5-17.5); Mean Corpuscular Hgb Conc. 30.6 g/dL (32.0-36.0); Mean Corpuscular Volume 88.3 fL (80.0-100.0); Neutrophils # (auto) 2.2 10 ^3/uL (1.6-8.6); Neutrophils % (auto) 58.8 % (37.0-80.0); Nucleated Red Blood Cells % 0.1 %; Red Blood Cells 4.63 10^6/uL (4.5-5.90); White Blood Cell 3.8 10^3/uL (4.4-10.8)
[2021-03-07 09:52] LABS: Eosinophils # (auto) 0.2 10 ^3/uL (0-0.8); Lymphocytes # (auto) 0.9 10 ^3/uL (0.4-5.4); Lymphocytes % (auto) 21.1 % (10.0-50.0); Monocytes # (auto) 0.6 10 ^3/uL (0-1.3); Monocytes % (auto) 16.6 % (0.0-12.0)
[2021-03-07] MEDS ORDERED: FUROSEMIDE 40 MG/4 ML VIAL IV SCH (10:00)
[2021-03-07] MEDS ORDERED: FAMOTIDINE (10MG/ML) 2ML VL IV SCH (10:00)
[2021-03-07 10:09] LABS: Albumin 2.4 g/dL (3.4-5.0); Calcium 8.3 mg/dL (8.5-10.1)
[2021-03-07 10:12] LABS: BUN/Creatinine Ratio 18.9; Bilirubin, Total 0.9 mg/dL (0.2-1.0); Total Protein 6.7 g/dL (6.4-8.2)
[2021-03-07] MEDS: HYDROcodone-ACET 5/325MG TAB PO PRN ×2 (11:34→19:00)
[2021-03-07 12:35] VITALS: BP 101/63
[2021-03-07] MEDS: DOBUTamine 1000MCG/ML 250 ML IV SCH (16:15)
[2021-03-07 16:38] VITALS: BP 117/72
[2021-03-07] MEDS ORDERED: WARFARIN SODIUM 2.5 MG TAB PO ONE (17:00)
[2021-03-07] MEDS ORDERED: IPRATROPIUM BROM 0.5 MG/2.5ML INH SOL NEB SCH (18:00)
[2021-03-07] MEDS ORDERED: ALBUTEROL SULF 2.5 MG/0.5ML(0.5%) NEB SOLN NEB SCH (18:00)
[2021-03-07] MEDS ORDERED: IPRATROPIUM BROM 0.5 MG/2.5ML INH SOL NEB PRN (20:15)
[2021-03-07] MEDS ORDERED: ALBUTEROL SULF 2.5 MG/0.5ML(0.5%) NEB SOLN NEB PRN (20:15)
[2021-03-07 21:49] VITALS: BP 110/66
[2021-03-07] MEDS: rifAXIMin 550 MG TAB PO SCH (22:14)
[2021-03-07] MEDS: FUROSEMIDE 40 MG/4 ML VIAL IV SCH (22:15)
[2021-03-08 03:00] VITALS: BP 104/69
[2021-03-08] MEDS: HYDROcodone-ACET 5/325MG TAB PO PRN ×4 (03:18→22:11)
[2021-03-08 05:00] VITALS: BP_SYST 122; BP_SYST 173; BP_DIAS 68; BP_DIAS 69
[2021-03-08] MEDS: DOBUTamine 1000MCG/ML 250 ML IV SCH ×2 (05:58→23:47)
[2021-03-08] MEDS: SODIUM CHLOR 0.9% PF (SALINE LOCK) 10ML VIAL/SYR IV SCH ×3 (05:58→22:02)
[2021-03-08] MEDS: InsuLIN REG 1unit/0.01ml Soln (100units/ml) SC SCH ×4 (06:03→21:53)
[2021-03-08] MEDS: ACCU-CHEK COMFORT CURVE STRIP VI SCH ×4 (06:03→21:53)
[2021-03-08 07:03] LABS: Basophils # (auto) 0 10 ^3/uL (0-0.2); Eosinophils # (auto) 0 10 ^3/uL (0-0.8); Hematocrit 37.4 % (41.0-53.0); Lymphocytes # (auto) 0.9 10 ^3/uL (0.4-5.4); Lymphocytes % (auto) 19.2 % (10.0-50.0); Mean Corpuscular Hgb Conc. 32.2 g/dL (32.0-36.0); Mean Corpuscular Volume 86.8 fL (80.0-100.0); Monocytes # (auto) 0.8 10 ^3/uL (0-1.3); Monocytes % (auto) 17.2 % (0.0-12.0); Neutrophils # (auto) 2.9 10 ^3/uL (1.6-8.6); Neutrophils % (auto) 63.6 % (37.0-80.0); Nucleated Red Blood Cells % 0.2 %; Red Cell Distribution Width 16.7 % (11.8-14.3); White Blood Cell 4.6 10^3/uL (4.4-10.8)
[2021-03-08 07:22] LABS: INR 1.27 (0.9-1.15)
[2021-03-08 07:28] LABS: BUN/Creatinine Ratio 19.4; Calcium 8.2 mg/dL (8.5-10.1)
[2021-03-08 09:00] VITALS: BP 118/67
[2021-03-08] MEDS: MULTIPLE VITAMIN TAB PO SCH (09:35)
[2021-03-08] MEDS: SPIRONOLACTONE 25 MG TAB PO SCH (09:35)
[2021-03-08] MEDS: LACTULOSE 20Gm/30ML SOLN PO SCH ×4 (09:35→22:00)
[2021-03-08] MEDS: FUROSEMIDE 40 MG/4 ML VIAL IV SCH ×2 (09:35→22:03)
[2021-03-08] MEDS: ASCORBIC ACID 500 MG TAB PO SCH ×2 (09:35→22:02)
[2021-03-08] MEDS: ZINC SULFATE 220mg CAP or TAB PO SCH (09:35)
[2021-03-08] MEDS: CHOLECALCIFEROL (VITD3) 2,000 UNIT CAP/TAB PO SCH (09:36)
[2021-03-08] MEDS: metOLazone 5 MG TAB PO SCH (09:36)
[2021-03-08] MEDS: rifAXIMin 550 MG TAB PO SCH ×2 (09:36→21:57)
[2021-03-08] MEDS: MORPHINE SULFATE 4 MG/ML SYR/VIAL IV PRN ×2 (11:24→20:23)
[2021-03-08 13:00] VITALS: BP 113/68
[2021-03-08 17:00] VITALS: BP 128/72
[2021-03-08] MEDS ORDERED: WARFARIN SODIUM 2.5 MG TAB PO ONE (17:00)
[2021-03-08 22:00] VITALS: BP 147/73
[2021-03-09] MEDS: MORPHINE SULFATE 4 MG/ML SYR/VIAL IV PRN ×4 (00:31→21:55)
[2021-03-09] MEDS: HYDROcodone-ACET 5/325MG TAB PO PRN ×2 (03:56→09:20)
[2021-03-09 05:00] VITALS: BP 132/71
[2021-03-09 06:17] LABS: BUN/Creatinine Ratio 20.2; Calcium 8.6 mg/dL (8.5-10.1)
[2021-03-09 06:22] LABS: INR 1.44 (0.9-1.15); Partial Thromboplastin Time 32.3 sec (23.6-33.0)
[2021-03-09] MEDS: ACCU-CHEK COMFORT CURVE STRIP VI SCH ×4 (06:37→22:20)
[2021-03-09] MEDS: SODIUM CHLOR 0.9% PF (SALINE LOCK) 10ML VIAL/SYR IV SCH ×3 (06:37→21:55)
[2021-03-09] MEDS: InsuLIN REG 1unit/0.01ml Soln (100units/ml) SC SCH ×4 (06:43→22:00)
[2021-03-09 09:00] VITALS: BP_SYST 129; BP_SYST 151; BP_DIAS 69; BP_DIAS 74
[2021-03-09] MEDS: ZINC SULFATE 220mg CAP or TAB PO SCH (09:17)
[2021-03-09] MEDS: FUROSEMIDE 40 MG/4 ML VIAL IV SCH ×2 (09:17→21:53)
[2021-03-09] MEDS: LACTULOSE 20Gm/30ML SOLN PO SCH ×3 (09:17→21:55)
[2021-03-09] MEDS: SPIRONOLACTONE 25 MG TAB PO SCH (09:18)
[2021-03-09] MEDS: ASCORBIC ACID 500 MG TAB PO SCH ×2 (09:18→21:55)
[2021-03-09] MEDS: MULTIPLE VITAMIN TAB PO SCH (09:18)
[2021-03-09] MEDS: CHOLECALCIFEROL (VITD3) 2,000 UNIT CAP/TAB PO SCH (09:18)
[2021-03-09] MEDS: metOLazone 5 MG TAB PO SCH (09:19)
[2021-03-09] MEDS: rifAXIMin 550 MG TAB PO SCH ×2 (09:19→22:00)
[2021-03-09 13:00] VITALS: BP 99/65
[2021-03-09] MEDS ORDERED: WARFARIN SODIUM 2.5 MG TAB PO ONE (17:00)
[2021-03-09] MEDS: ALBUMIN 25% 100 ML IV SCH (17:23)
[2021-03-09 22:00] VITALS: BP 108/69
[2021-03-10] MEDS: ALBUMIN 25% 100 ML IV SCH (01:00)
[2021-03-10] MEDS: MORPHINE SULFATE 4 MG/ML SYR/VIAL IV PRN ×2 (01:30→09:39)
[2021-03-10] MEDS: DOBUTamine 1000MCG/ML 250 ML IV SCH (05:24)
[2021-03-10 05:27] VITALS: BP 116/69
[2021-03-10] MEDS: SODIUM CHLOR 0.9% PF (SALINE LOCK) 10ML VIAL/SYR IV SCH ×2 (05:54→14:00)
[2021-03-10] MEDS: InsuLIN REG 1unit/0.01ml Soln (100units/ml) SC SCH ×2 (06:04→11:30)
[2021-03-10] MEDS: ACCU-CHEK COMFORT CURVE STRIP VI SCH ×2 (06:04→11:42)
[2021-03-10 07:46] LABS: Potassium 5.3 mmol/L (3.5-5.1)
[2021-03-10 07:52] LABS: Albumin 2.8 g/dL (3.4-5.0); BUN/Creatinine Ratio 19.2; Bilirubin, Total 1.3 mg/dL (0.2-1.0); Calcium 8.7 mg/dL (8.5-10.1); Total Protein 6.5 g/dL (6.4-8.2)
[2021-03-10 09:00] VITALS: BP 126/78
[2021-03-10] MEDS: ZINC SULFATE 220mg CAP or TAB PO SCH (09:30)
[2021-03-10] MEDS: ASCORBIC ACID 500 MG TAB PO SCH (09:30)
[2021-03-10] MEDS: rifAXIMin 550 MG TAB PO SCH (09:30)
[2021-03-10] MEDS: SPIRONOLACTONE 25 MG TAB PO SCH (09:30)
[2021-03-10] MEDS: CHOLECALCIFEROL (VITD3) 2,000 UNIT CAP/TAB PO SCH (09:30)
[2021-03-10] MEDS: LACTULOSE 20Gm/30ML SOLN PO SCH (09:31)
[2021-03-10] MEDS: MULTIPLE VITAMIN TAB PO SCH (09:31)
[2021-03-10] MEDS: metOLazone 5 MG TAB PO SCH (09:31)
[2021-03-10] MEDS: FUROSEMIDE 40 MG/4 ML VIAL IV SCH (09:32)
[2021-03-10] MEDS ORDERED: PANTOPRAZOLE 40 MG/10 ML VIAL INJ IV ONE (11:45)
[2021-03-10 12:35] LABS: INR 1.73 (0.9-1.15); Partial Thromboplastin Time 32.8 sec (23.6-33.0)
[2021-03-10 13:00] VITALS: BP 118/82
[2021-03-10] MEDS ORDERED: METO5TAB5 PO (14:56)
[2021-03-10] MEDS ORDERED: WARFARIN SODIUM 5 MG TAB PO ONE (17:00)
[2021-03-11] MEDS ORDERED: PANTOPRAZOLE 40 MG/10 ML VIAL INJ IV SCH (10:00)
== END 2021-03-10 17:00 | disposition home health service (06) ==
LOC: ER 13:10 → EDBD 13:10 → WEST WING 23:55
PROVIDERS: ADMIT Nurse Practitioner Family; ATTEND Internal Medicine
PROC: 0W9G3ZZ Drainage of Peritoneal Cavity, Percutaneous Approach (ICD-10-PCS; principal; 2021-03-09)
DX: K74.60 Unspecified cirrhosis of liver (principal); I50.43 Acute on chronic combined systolic (congestive) and diastolic (congestive) heart failure; N17.9 Acute kidney failure, unspecified; E44.0 Moderate protein-calorie malnutrition; I42.9 Cardiomyopathy, unspecified; R18.8 Other ascites; E88.09 Other disorders of plasma-protein metabolism, not elsewhere classified; E11.22 Type 2 diabetes mellitus with diabetic chronic kidney disease; N49.2 Inflammatory disorders of scrotum; I13.2 Hypertensive heart and chronic kidney disease with heart failure and with stage 5 chronic kidney disease, or end stage renal disease; N43.3 Hydrocele, unspecified; Z20.822 Contact with and (suspected) exposure to COVID-19; K76.0 Fatty (change of) liver, not elsewhere classified; E66.01 Morbid (severe) obesity due to excess calories; J44.9 Chronic obstructive pulmonary disease, unspecified; I70.0 Atherosclerosis of aorta; Z82.49 Family history of ischemic heart disease and other diseases of the circulatory system; Z68.33 Body mass index [BMI] 33.0-33.9, adult; Z83.3 Family history of diabetes mellitus; Z95.810 Presence of automatic (implantable) cardiac defibrillator; N18.31 Chronic kidney disease, stage 3a
CPT/HCPCS: 36415; 49083; 71045; 74176; 76870; 76942; 80048; 80053; 82140; 82150; 82962; 83690; 83880; 85025; 85610; 85730; 87426; 93005; 94640; 96374; 96375; C9113; G0378; J1815; J2405; J3490; P9047

== ENCOUNTER 2021-04-28 14:35 | Inpatient (IN) | payer MEDICARE, MEDICAID ==
[~2021-04-28] VITALS: Ht 182.9 cm; Wt 113.2 kg
[~2021-04-28 14:35] MED LIST changes: +METO5TAB5 PO
[2021-04-28 16:35] LABS: Basophils # (auto) 0.1 10 ^3/uL (0-0.2); Basophils % (auto) 2.5 % (0.0-2.0); Eosinophils # (auto) 0 10 ^3/uL (0-0.8); Eosinophils % (auto) 0.4 % (0.0-7.0); Hematocrit 38.6 % (41.0-53.0); Hemoglobin 12.3 g/dL (13.5-17.5); Lymphocytes # (auto) 0.7 10 ^3/uL (0.4-5.4); Lymphocytes % (auto) 15.4 % (10.0-50.0); Mean Corpuscular Hemoglobin 27.2 pg (28.0-32.0); Mean Corpuscular Hgb Conc. 31.9 g/dL (32.0-36.0); Mean Corpuscular Volume 85.5 fL (80.0-100.0); Monocytes # (auto) 0.8 10 ^3/uL (0-1.3); Monocytes % (auto) 16.1 % (0.0-12.0); Neutrophils # (auto) 3.2 10 ^3/uL (1.6-8.6); Neutrophils % (auto) 65.6 % (37.0-80.0); Nucleated Red Blood Cells % 0.1 %; Red Blood Cells 4.52 10^6/uL (4.5-5.90); Red Cell Distribution Width 16.6 % (11.8-14.3); White Blood Cell 4.8 10^3/uL (4.4-10.8)
[2021-04-28 16:44] LABS: Albumin 2.7 g/dL (3.4-5.0); Calcium 8.5 mg/dL (8.5-10.1); Potassium 4.8 mmol/L (3.5-5.1)
[2021-04-28 16:49] LABS: BUN/Creatinine Ratio 20.1; Bilirubin, Total 1.1 mg/dL (0.2-1.0); Total Protein 7.4 g/dL (6.4-8.2)
[2021-04-28] MEDS ORDERED: FUROSEMIDE 40 MG/4 ML VIAL IV ONE (23:30)
[2021-04-29] MEDS ORDERED: ONDANSETRON HCL 4 MG/2 ML VIAL IV PRN (03:15)
[2021-04-29] MEDS ORDERED: TEMAZEPAM 15 MG CAP PO PRN (03:15)
[2021-04-29] MEDS ORDERED: NITROGLYCERIN 0.4 MG SL TAB SL PRN (03:15)
[2021-04-29] MEDS ORDERED: MORPHINE SULFATE INJECTION 2 MG/ML SYRG IV PRN (03:15)
[2021-04-29] MEDS: HYDROcodone-ACET 5/325MG TAB PO PRN ×3 (04:20→18:03)
[2021-04-29] MEDS: GABAPENTIN 300 MG CAP PO SCH ×3 (05:56→22:18)
[2021-04-29] MEDS ORDERED: FUROSEMIDE 20 MG/2 ML VIAL IV SCH (06:00)
[2021-04-29 09:10] LABS: INR 1.32 (0.9-1.15)
[2021-04-29 09:24] LABS: Hematocrit 40.3 % (41.0-53.0); Hemoglobin 13.3 g/dL (13.5-17.5); Mean Corpuscular Hemoglobin 28.3 pg (28.0-32.0); Mean Corpuscular Volume 85.8 fL (80.0-100.0); Red Cell Distribution Width 16.7 % (11.8-14.3); White Blood Cell 5.9 10^3/uL (4.4-10.8)
[2021-04-29 09:27] LABS: Basophils % (manual) 0 (0.0-2.0); Blast Cells 0; Eosinophils % (manual) 0 (0-7); Metamyelocytes % 0; Promyelocytes % 0; Reactive Lymphocytes 0
[2021-04-29 09:34] LABS: BUN/Creatinine Ratio 20.4; Calcium 8.6 mg/dL (8.5-10.1); Potassium 5.5 mmol/L (3.5-5.1)
[2021-04-29] MEDS: SPIRONOLACTONE 25 MG TAB PO SCH (11:15)
[2021-04-29 11:29] LABS: Band Neutrophils % (manual) 1; Lymphocytes % (manual) 29 (10.0-50.0); Monocytes % (manual) 22 (0-12); Myelocytes % 1
[2021-04-29] MEDS: PANTOPRAZOLE 40 MG TAB PO SCH (11:45)
[2021-04-29] MEDS: SACUBITRIL-VALSARTAN 24mg/26mg TAB PO SCH (12:00)
[2021-04-29] MEDS: DOBUTamine 1000MCG/ML 250 ML IV SCH ×2 (14:30→20:30)
[2021-04-29] MEDS ORDERED: DIGOXIN 0.25 MG TAB PO ONE (14:30)
[2021-04-29] MEDS ORDERED: WARFARIN SODIUM 5 MG TAB PO ONE (17:00)
[2021-04-30] VITALS (8 sets, daily range): BP systolic 104–127; BP diastolic 60–81
[2021-04-30] MEDS: HYDROcodone-ACET 5/325MG TAB PO PRN ×3 (01:06→18:18)
[2021-04-30] MEDS: SACUBITRIL-VALSARTAN 24mg/26mg TAB PO SCH ×3 (01:07→20:58)
[2021-04-30 05:17] LABS: Basophils # (auto) 0 10 ^3/uL (0-0.2); Basophils % (auto) 0.4 % (0.0-2.0); Eosinophils # (auto) 0 10 ^3/uL (0-0.8); Eosinophils % (auto) 0.9 % (0.0-7.0); Hematocrit 35.9 % (41.0-53.0); Hemoglobin 11.5 g/dL (13.5-17.5); Lymphocytes # (auto) 0.7 10 ^3/uL (0.4-5.4); Lymphocytes % (auto) 16.2 % (10.0-50.0); Mean Corpuscular Hemoglobin 27.5 pg (28.0-32.0); Mean Corpuscular Hgb Conc. 32.1 g/dL (32.0-36.0); Mean Corpuscular Volume 85.6 fL (80.0-100.0); Monocytes # (auto) 0.7 10 ^3/uL (0-1.3); Monocytes % (auto) 16.8 % (0.0-12.0); Neutrophils # (auto) 2.9 10 ^3/uL (1.6-8.6); Neutrophils % (auto) 65.7 % (37.0-80.0); Nucleated Red Blood Cells % 0.1 %; Red Blood Cells 4.19 10^6/uL (4.5-5.90); Red Cell Distribution Width 16.4 % (11.8-14.3); White Blood Cell 4.4 10^3/uL (4.4-10.8)
[2021-04-30 05:25] LABS: INR 1.28 (0.9-1.15)
[2021-04-30] MEDS: DOBUTamine 1000MCG/ML 250 ML IV SCH ×2 (05:25→15:36)
[2021-04-30] MEDS: GABAPENTIN 300 MG CAP PO SCH ×3 (05:28→20:58)
[2021-04-30 05:41] LABS: Potassium 4.9 mmol/L (3.5-5.1)
[2021-04-30 05:48] LABS: Albumin 2.4 g/dL (3.4-5.0); BUN/Creatinine Ratio 20.6; Bilirubin, Total 0.9 mg/dL (0.2-1.0); Calcium 8.2 mg/dL (8.5-10.1); Total Protein 6.6 g/dL (6.4-8.2)
[2021-04-30] MEDS: FUROSEMIDE 40 MG/4 ML VIAL IV SCH ×2 (06:00→18:00)
[2021-04-30] MEDS: DIGOXIN 0.125 MG TAB PO SCH (08:52)
[2021-04-30] MEDS: PANTOPRAZOLE 40 MG TAB PO SCH (08:52)
[2021-04-30] MEDS: SPIRONOLACTONE 25 MG TAB PO SCH (08:52)
[2021-04-30] MEDS ORDERED: WARFARIN SODIUM 2.5 MG TAB PO ONE (17:00)
[2021-05-01] MEDS: HYDROcodone-ACET 5/325MG TAB PO PRN ×3 (03:55→21:22)
[2021-05-01] MEDS: DOBUTamine 1000MCG/ML 250 ML IV SCH ×3 (04:39→16:42)
[2021-05-01 05:00] VITALS: BP 123/73
[2021-05-01 05:25] LABS: INR 1.32 (0.9-1.15)
[2021-05-01] MEDS: GABAPENTIN 300 MG CAP PO SCH ×3 (05:39→21:11)
[2021-05-01] MEDS: FUROSEMIDE 40 MG/4 ML VIAL IV SCH (05:47)
[2021-05-01 09:00] VITALS: BP 105/58
[2021-05-01] MEDS: PANTOPRAZOLE 40 MG TAB PO SCH (09:20)
[2021-05-01] MEDS: SACUBITRIL-VALSARTAN 24mg/26mg TAB PO SCH ×2 (09:20→21:10)
[2021-05-01] MEDS: DIGOXIN 0.125 MG TAB PO SCH (09:21)
[2021-05-01] MEDS: SPIRONOLACTONE 25 MG TAB PO SCH (09:21)
[2021-05-01] MEDS: ACYCLOVIR 400 MG TAB PO SCH ×4 (11:00→21:11)
[2021-05-01 12:51] VITALS: BP 103/66
[2021-05-01 17:00] VITALS: BP 127/62
[2021-05-01] MEDS ORDERED: WARFARIN SODIUM 2.5 MG TAB PO ONE (17:00)
[2021-05-01] MEDS: FUROSEMIDE INJECTION 100 MG in D5W 5% 100 ML IV SCH (18:26)
[2021-05-01 22:00] VITALS: BP 145/77
[2021-05-02] MEDS: HYDROcodone-ACET 5/325MG TAB PO PRN ×3 (02:51→18:18)
[2021-05-02] MEDS: FUROSEMIDE INJECTION 100 MG in D5W 5% 100 ML IV SCH ×3 (02:54→21:00)
[2021-05-02] MEDS: DOBUTamine 1000MCG/ML 250 ML IV SCH ×3 (02:55→18:17)
[2021-05-02 05:18] LABS: INR 1.41 (0.9-1.15); Partial Thromboplastin Time 31.2 sec (23.6-33.0)
[2021-05-02] MEDS: GABAPENTIN 300 MG CAP PO SCH ×3 (05:39→21:10)
[2021-05-02] MEDS: ACYCLOVIR 400 MG TAB PO SCH ×5 (05:40→21:10)
[2021-05-02 09:00] VITALS: BP 125/61
[2021-05-02] MEDS: SACUBITRIL-VALSARTAN 24mg/26mg TAB PO SCH ×2 (09:55→21:10)
[2021-05-02] MEDS: PANTOPRAZOLE 40 MG TAB PO SCH (09:56)
[2021-05-02] MEDS: SPIRONOLACTONE 25 MG TAB PO SCH (09:56)
[2021-05-02] MEDS: DIGOXIN 0.125 MG TAB PO SCH (09:56)
[2021-05-02 12:30] VITALS: BP 123/68
[2021-05-02 15:18] LABS: Albumin 2.5 g/dL (3.4-5.0); Calcium 8.4 mg/dL (8.5-10.1); Potassium 4.9 mmol/L (3.5-5.1)
[2021-05-02 15:23] LABS: BUN/Creatinine Ratio 18.5; Bilirubin, Total 0.9 mg/dL (0.2-1.0); Total Protein 6.8 g/dL (6.4-8.2)
[2021-05-02 17:00] VITALS: BP 115/65
[2021-05-02] MEDS ORDERED: WARFARIN SODIUM 2.5 MG TAB PO ONE (17:00)
[2021-05-02 22:00] VITALS: BP 110/60
[2021-05-03] MEDS: HYDROcodone-ACET 5/325MG TAB PO PRN ×4 (00:25→22:24)
[2021-05-03] MEDS: DOBUTamine 1000MCG/ML 250 ML IV SCH ×3 (03:44→15:22)
[2021-05-03 05:00] VITALS: BP 94/59
[2021-05-03 05:13] LABS: Basophils # (auto) 0 10 ^3/uL (0-0.2); Basophils % (auto) 0.5 % (0.0-2.0); Eosinophils # (auto) 0.1 10 ^3/uL (0-0.8); Eosinophils % (auto) 1.8 % (0.0-7.0); Hematocrit 34.3 % (41.0-53.0); Hemoglobin 10.9 g/dL (13.5-17.5); Lymphocytes # (auto) 0.5 10 ^3/uL (0.4-5.4); Lymphocytes % (auto) 10.6 % (10.0-50.0); Mean Corpuscular Hemoglobin 27.1 pg (28.0-32.0); Mean Corpuscular Hgb Conc. 31.6 g/dL (32.0-36.0); Mean Corpuscular Volume 85.9 fL (80.0-100.0); Monocytes # (auto) 0.7 10 ^3/uL (0-1.3); Monocytes % (auto) 14.8 % (0.0-12.0); Neutrophils # (auto) 3.3 10 ^3/uL (1.6-8.6); Neutrophils % (auto) 72.3 % (37.0-80.0); Red Cell Distribution Width 16.1 % (11.8-14.3); White Blood Cell 4.6 10^3/uL (4.4-10.8)
[2021-05-03 05:28] LABS: INR 1.55 (0.9-1.15)
[2021-05-03 05:48] LABS: Albumin 2.4 g/dL (3.4-5.0); Bilirubin, Total 0.9 mg/dL (0.2-1.0); Calcium 7.9 mg/dL (8.5-10.1)
[2021-05-03] MEDS: ACYCLOVIR 400 MG TAB PO SCH ×5 (06:17→22:18)
[2021-05-03] MEDS: GABAPENTIN 300 MG CAP PO SCH ×3 (06:18→22:18)
[2021-05-03 08:56] VITALS: BP 120/52
[2021-05-03] MEDS: SACUBITRIL-VALSARTAN 24mg/26mg TAB PO SCH ×2 (09:58→22:18)
[2021-05-03] MEDS: PANTOPRAZOLE 40 MG TAB PO SCH (09:58)
[2021-05-03] MEDS: FUROSEMIDE INJECTION 100 MG in D5W 5% 100 ML IV SCH ×2 (09:58→18:17)
[2021-05-03] MEDS: DIGOXIN 0.125 MG TAB PO SCH (09:58)
[2021-05-03] MEDS: SPIRONOLACTONE 25 MG TAB PO SCH (09:59)
[2021-05-03] MEDS ORDERED: WARFARIN SODIUM 2.5 MG TAB PO ONE (18:00)
[2021-05-03 22:26] VITALS: BP 118/62
[2021-05-04] MEDS: DOBUTamine 1000MCG/ML 250 ML IV SCH ×2 (03:30→14:24)
[2021-05-04] MEDS: FUROSEMIDE INJECTION 100 MG in D5W 5% 100 ML IV SCH ×3 (03:33→23:58)
[2021-05-04 03:52] VITALS: BP 115/70
[2021-05-04] MEDS: HYDROcodone-ACET 5/325MG TAB PO PRN (03:56)
[2021-05-04 05:57] LABS: Basophils # (auto) 0 10 ^3/uL (0-0.2); Basophils % (auto) 0.7 % (0.0-2.0); Eosinophils # (auto) 0.1 10 ^3/uL (0-0.8); Eosinophils % (auto) 2.1 % (0.0-7.0); Hematocrit 35.1 % (41.0-53.0); Hemoglobin 11.4 g/dL (13.5-17.5); Lymphocytes # (auto) 0.7 10 ^3/uL (0.4-5.4); Lymphocytes % (auto) 15.5 % (10.0-50.0); Mean Corpuscular Hemoglobin 27.7 pg (28.0-32.0); Mean Corpuscular Hgb Conc. 32.5 g/dL (32.0-36.0); Mean Corpuscular Volume 85.4 fL (80.0-100.0); Monocytes # (auto) 0.6 10 ^3/uL (0-1.3); Monocytes % (auto) 12.1 % (0.0-12.0); Neutrophils # (auto) 3.3 10 ^3/uL (1.6-8.6); Neutrophils % (auto) 69.6 % (37.0-80.0); Nucleated Red Blood Cells % 0.1 %; Red Blood Cells 4.11 10^6/uL (4.5-5.90); Red Cell Distribution Width 16.7 % (11.8-14.3); White Blood Cell 4.7 10^3/uL (4.4-10.8)
[2021-05-04 06:03] LABS: INR 1.61 (0.9-1.15); Partial Thromboplastin Time 32.8 sec (23.6-33.0)
[2021-05-04] MEDS: ACYCLOVIR 400 MG TAB PO SCH ×5 (06:58→23:39)
[2021-05-04] MEDS: GABAPENTIN 300 MG CAP PO SCH ×3 (06:58→23:38)
[2021-05-04 08:56] VITALS: BP 104/56
[2021-05-04] MEDS: SACUBITRIL-VALSARTAN 24mg/26mg TAB PO SCH ×2 (10:01→23:57)
[2021-05-04] MEDS: PANTOPRAZOLE 40 MG TAB PO SCH (10:01)
[2021-05-04] MEDS: DIGOXIN 0.125 MG TAB PO SCH (10:03)
[2021-05-04] MEDS: SPIRONOLACTONE 25 MG TAB PO SCH (10:06)
[2021-05-04 13:00] VITALS: BP 108/57
[2021-05-04] MEDS: HYDROmorphone HCL 2 MG TAB PO SCH ×3 (14:21→23:39)
[2021-05-04 17:00] VITALS: BP 117/76
[2021-05-04] MEDS ORDERED: WARFARIN SODIUM 2.5 MG TAB PO ONE (17:00)
[2021-05-04 22:00] VITALS: BP 109/70
[2021-05-05 05:00] VITALS: BP 112/71
[2021-05-05] MEDS: GABAPENTIN 300 MG CAP PO SCH ×3 (05:27→22:12)
[2021-05-05] MEDS: ACYCLOVIR 400 MG TAB PO SCH ×5 (05:27→22:12)
[2021-05-05] MEDS: HYDROmorphone HCL 2 MG TAB PO SCH ×3 (05:27→17:51)
[2021-05-05 06:25] LABS: Basophils # (auto) 0 10 ^3/uL (0-0.2); Basophils % (auto) 0.5 % (0.0-2.0); Eosinophils # (auto) 0.1 10 ^3/uL (0-0.8); Eosinophils % (auto) 2.4 % (0.0-7.0); Hematocrit 39.1 % (41.0-53.0); Hemoglobin 12.7 g/dL (13.5-17.5); Lymphocytes # (auto) 0.8 10 ^3/uL (0.4-5.4); Lymphocytes % (auto) 19.8 % (10.0-50.0); Mean Corpuscular Hgb Conc. 32.4 g/dL (32.0-36.0); Mean Corpuscular Volume 86.3 fL (80.0-100.0); Monocytes # (auto) 0.6 10 ^3/uL (0-1.3); Monocytes % (auto) 14.3 % (0.0-12.0); Neutrophils # (auto) 2.5 10 ^3/uL (1.6-8.6); Nucleated Red Blood Cells % 0.1 %; Red Blood Cells 4.53 10^6/uL (4.5-5.90); Red Cell Distribution Width 16.6 % (11.8-14.3); White Blood Cell 3.9 10^3/uL (4.4-10.8)
[2021-05-05 06:27] LABS: INR 1.62 (0.9-1.15)
[2021-05-05 09:00] VITALS: BP 107/63
[2021-05-05] MEDS: SACUBITRIL-VALSARTAN 24mg/26mg TAB PO SCH ×2 (10:00→22:12)
[2021-05-05] MEDS: FUROSEMIDE INJECTION 100 MG in D5W 5% 100 ML IV SCH ×2 (10:57→17:59)
[2021-05-05] MEDS: SPIRONOLACTONE 25 MG TAB PO SCH (10:58)
[2021-05-05] MEDS: DIGOXIN 0.125 MG TAB PO SCH (10:59)
[2021-05-05] MEDS: PANTOPRAZOLE 40 MG TAB PO SCH (10:59)
[2021-05-05 13:00] VITALS: BP 107/61
[2021-05-05 17:00] VITALS: BP 134/79
[2021-05-05] MEDS ORDERED: WARFARIN SODIUM 10 MG TAB PO ONE (17:00)
[2021-05-05 22:00] VITALS: BP 128/79
[2021-05-06] MEDS: HYDROmorphone HCL 2 MG TAB PO SCH ×4 (01:31→17:39)
[2021-05-06 05:00] VITALS: BP 117/66
[2021-05-06] MEDS: FUROSEMIDE INJECTION 100 MG in D5W 5% 100 ML IV SCH ×2 (05:49→15:25)
[2021-05-06] MEDS: ACYCLOVIR 400 MG TAB PO SCH ×5 (05:50→20:28)
[2021-05-06] MEDS: GABAPENTIN 300 MG CAP PO SCH ×3 (05:50→20:28)
[2021-05-06 06:33] LABS: INR 2.08 (0.9-1.15)
[2021-05-06 09:00] VITALS: BP 105/59
[2021-05-06] MEDS: SACUBITRIL-VALSARTAN 24mg/26mg TAB PO SCH ×2 (09:39→20:28)
[2021-05-06] MEDS: SPIRONOLACTONE 25 MG TAB PO SCH (09:39)
[2021-05-06] MEDS: DIGOXIN 0.125 MG TAB PO SCH (09:40)
[2021-05-06] MEDS: PANTOPRAZOLE 40 MG TAB PO SCH (09:40)
[2021-05-06] MEDS: ACETAMINOPHEN 325 MG TAB PO PRN (09:41)
[2021-05-06 12:31] VITALS: BP 98/59
[2021-05-06] MEDS ORDERED: PHYTONADIONE (VIT K)10 MG/ML 1ML VIAL SUBCUT ONE (14:45)
[2021-05-06] MEDS ORDERED: WARFARIN SODIUM 5 MG TAB PO ONE (17:00)
[2021-05-06 17:09] VITALS: BP 108/59
[2021-05-06 21:30] VITALS: BP 122/86
[2021-05-07] VITALS (7 sets, daily range): BP systolic 83–148; BP diastolic 55–81
[2021-05-07] MEDS: HYDROmorphone HCL 2 MG TAB PO SCH ×5 (00:40→23:19)
[2021-05-07] MEDS: FUROSEMIDE INJECTION 100 MG in D5W 5% 100 ML IV SCH ×3 (04:13→21:00)
[2021-05-07 05:58] LABS: INR 1.89 (0.9-1.15); Partial Thromboplastin Time 34.9 sec (23.6-33.0)
[2021-05-07] MEDS: GABAPENTIN 300 MG CAP PO SCH ×3 (06:02→22:40)
[2021-05-07] MEDS: ACYCLOVIR 400 MG TAB PO SCH ×5 (06:02→22:41)
[2021-05-07] MEDS: DIGOXIN 0.125 MG TAB PO SCH (10:00)
[2021-05-07] MEDS: SACUBITRIL-VALSARTAN 24mg/26mg TAB PO SCH ×2 (10:00→22:40)
[2021-05-07] MEDS: SPIRONOLACTONE 25 MG TAB PO SCH (10:00)
[2021-05-07] MEDS: PANTOPRAZOLE 40 MG TAB PO SCH (10:00)
[2021-05-07] MEDS ORDERED: PHYTONADIONE (VIT K)10 MG/ML 1ML VIAL SUBCUT ONE (10:15)
[2021-05-08] MEDS: ACYCLOVIR 400 MG TAB PO SCH (06:09)
[2021-05-08] MEDS: GABAPENTIN 300 MG CAP PO SCH (06:09)
[2021-05-08] MEDS: FUROSEMIDE INJECTION 100 MG in D5W 5% 100 ML IV SCH (06:09)
[2021-05-08] MEDS: HYDROmorphone HCL 2 MG TAB PO SCH ×2 (06:10→12:08)
[2021-05-08 06:40] LABS: INR 1.44 (0.9-1.15); Partial Thromboplastin Time 32.3 sec (23.6-33.0)
[2021-05-08 09:19] VITALS: BP 112/72
[2021-05-08] MEDS: SPIRONOLACTONE 25 MG TAB PO SCH (09:22)
[2021-05-08] MEDS: SACUBITRIL-VALSARTAN 24mg/26mg TAB PO SCH (09:22)
[2021-05-08] MEDS: ACETAMINOPHEN 325 MG TAB PO PRN (09:23)
[2021-05-08] MEDS: DIGOXIN 0.125 MG TAB PO SCH (09:23)
[2021-05-08] MEDS: PANTOPRAZOLE 40 MG TAB PO SCH (09:23)
[2021-05-08] MEDS ORDERED: OXYCODONE W/ ACETAMINOPHEN 5/325MG TABLET PO ONE (10:00)
[2021-05-08 13:00] VITALS: BP 115/70
== END 2021-05-08 13:25 | disposition home or self-care (01) | DRG 194 ==
LOC: EDBD 14:35 → ER 14:35 → TELE-CENTR 04-29 00:20 → TELE 04-29 03:05 → TELE-CENTR 04-29 23:43
PROVIDERS: ADMIT Nurse Practitioner; ATTEND Family Medicine
PROC: 0W9G3ZZ Drainage of Peritoneal Cavity, Percutaneous Approach (ICD-10-PCS; principal; 2021-05-07)
DX: I13.2 Hypertensive heart and chronic kidney disease with heart failure and with stage 5 chronic kidney disease, or end stage renal disease (principal); E43 Unspecified severe protein-calorie malnutrition; N18.6 End stage renal disease; R18.8 Other ascites; E11.21 Type 2 diabetes mellitus with diabetic nephropathy; B02.9 Zoster without complications; I50.43 Acute on chronic combined systolic (congestive) and diastolic (congestive) heart failure; E11.22 Type 2 diabetes mellitus with diabetic chronic kidney disease; J44.9 Chronic obstructive pulmonary disease, unspecified; E87.5 Hyperkalemia; Z20.822 Contact with and (suspected) exposure to COVID-19; E11.40 Type 2 diabetes mellitus with diabetic neuropathy, unspecified; I25.10 Atherosclerotic heart disease of native coronary artery without angina pectoris; K74.60 Unspecified cirrhosis of liver; N43.3 Hydrocele, unspecified; W18.39XA Other fall on same level, initial encounter; Y93.89 Activity, other specified; Y92.89 Other specified places as the place of occurrence of the external cause; Y99.8 Other external cause status; Z82.49 Family history of ischemic heart disease and other diseases of the circulatory system; Z83.3 Family history of diabetes mellitus; Z95.5 Presence of coronary angioplasty implant and graft; Z95.810 Presence of automatic (implantable) cardiac defibrillator; Z68.33 Body mass index [BMI] 33.0-33.9, adult
CPT/HCPCS: 36415; 49083; 71045; 76700; 76870; 76942; 80048; 80053; 80162; 83880; 84484; 85007; 85025; 85027; 85610; 85730; 87081; 87426; 93005; 93970; 96365; 96375; 97110; 97116; 97163; 97530; G0378; J3430; J7060